=== PATIENT | male | born 1945 | race Caucasian/White ===

== ENCOUNTER 2021-01-04 18:36 | Inpatient (IN) ==
[2021-01-04] MEDS ORDERED: Dextrose Gel 15 GM/37.5 ML TUBE PO PRN ×2 (18:44)
[2021-01-04] MEDS ORDERED: D5% in Water 1,000 ML IVC PRN (18:44)
[2021-01-04] MEDS ORDERED: *HR* Dextrose 50 % in Water (Vial) 50 ML VIAL IVP PRN (18:44)
[2021-01-04] MEDS ORDERED: Acetaminophen 325 MG TABLET PO PRN (18:47)
[2021-01-04] MEDS ORDERED: Ondansetron ODT 4 MG TAB.RAPDIS SL PRN (18:51)
[2021-01-04] MEDS: levETIRAcetam 250 MG TABLET PO SCH (22:03)
[2021-01-04] MEDS: Insulin LISPRO 300 UNITS/3 ML VIAL SUBQ SCH (22:04)
[2021-01-04] MEDS: Budesonide/Formoterol 80/4.5 1 PUFF INH IH SCH (22:37)
[2021-01-05 07:16] LABS: Basophils # 0.1 K/mcL (0.0-0.2); Basophils % 0.6 %; Eosinophils # 0.8 K/mcL (0.0-0.6); Eosinophils % 6.9 %; Hematocrit 32.2 % (37.5-50.1); Hemoglobin 9.9 g/dL (12.9-16.9); Immature Granulocytes % 4.6 % (0-4); Lymphocytes # 1.9 K/mcL (0.6-4.6); Lymphocytes % 15.4 %; Mean Corpuscular HGB Conc 30.7 g/dL (31.6-35.5); Mean Corpuscular Hemoglobin 26.4 pg (28.0-33.3); Mean Corpuscular Volume 85.9 fL (83.0-100.0); Mean Platelet Volume 9.6 fL (9.4-12.4); Monocytes # 1.2 K/mcL (0.0-1.3); Monocytes % 9.7 %; Platelet Count 289 K/mcL (140-400); Red Blood Count 3.75 M/mcL (4.19-5.50); Red Cell Distribution Width 17.8 % (11.5-14.5); Segmented Neutrophils % 62.8 %; White Blood Count 12.2 K/mcL (4.3-11.1)
[2021-01-05 07:21] LABS: Neutrophils # 7.7 K/mcL (1.6-8.9)
[2021-01-05] MEDS: Insulin LISPRO 300 UNITS/3 ML VIAL SUBQ SCH ×4 (07:38→20:14)
[2021-01-05 07:45] LABS: BUN/Creatinine Ratio 21 (6-26); Blood Urea Nitrogen 22 mg/dL (8-23); Calcium 8.1 mg/dL (8.6-10.3); Carbon Dioxide 31 mEq/L (23-29); Chloride 101 mEq/L (98-107); Glucose 96 mg/dL (70-105); Osmolality,Calculated 289 (280-300); Sodium 138 mEq/L (136-145); eGFR For African Americans > 60 (> 60); eGFR For Non-African Americans > 60 (> 60)
[2021-01-05] MEDS: levETIRAcetam 250 MG TABLET PO SCH ×2 (07:50→20:17)
[2021-01-05] MEDS: Multivit/Ca/Min/Fe/FA 1 TAB TABLET PO SCH (07:50)
[2021-01-05] MEDS: Aspirin Enteric Coated 81 MG Tablet PO SCH (07:50)
[2021-01-05] MEDS: Cholecalciferol (D-3) 1,000 UNIT (25MCG) TABLET PO SCH (07:50)
[2021-01-05] MEDS: Budesonide/Formoterol 80/4.5 1 PUFF INH IH SCH ×2 (10:00→22:05)
[2021-01-05] MEDS: *HR* Rivaroxaban 10 MG TABLET PO SCH (16:29)
[2021-01-06] MEDS: Insulin LISPRO 300 UNITS/3 ML VIAL SUBQ SCH ×4 (07:41→19:40)
[2021-01-06] MEDS: Cholecalciferol (D-3) 1,000 UNIT (25MCG) TABLET PO SCH (08:13)
[2021-01-06] MEDS: Aspirin Enteric Coated 81 MG Tablet PO SCH (08:13)
[2021-01-06] MEDS: Multivit/Ca/Min/Fe/FA 1 TAB TABLET PO SCH (08:13)
[2021-01-06] MEDS: levETIRAcetam 250 MG TABLET PO SCH ×2 (08:13→19:45)
[2021-01-06] MEDS: Budesonide/Formoterol 80/4.5 1 PUFF INH IH SCH ×2 (09:53→21:12)
[2021-01-06] MEDS: *HR* Rivaroxaban 10 MG TABLET PO SCH (16:10)
[2021-01-07] MEDS: Budesonide/Formoterol 80/4.5 1 PUFF INH IH SCH ×2 (09:40→22:35)
[2021-01-07] MEDS: Ipratropium/Albuterol Neb 3 ML IH PRN (09:53)
[2021-01-07] MEDS: Aspirin Enteric Coated 81 MG Tablet PO SCH (10:20)
[2021-01-07] MEDS: Insulin LISPRO 300 UNITS/3 ML VIAL SUBQ SCH ×4 (10:21→20:02)
[2021-01-07] MEDS: levETIRAcetam 250 MG TABLET PO SCH ×2 (10:21→20:19)
[2021-01-07] MEDS: Multivit/Ca/Min/Fe/FA 1 TAB TABLET PO SCH (10:21)
[2021-01-07] MEDS: Cholecalciferol (D-3) 1,000 UNIT (25MCG) TABLET PO SCH (10:21)
[2021-01-07] MEDS: *HR* Rivaroxaban 10 MG TABLET PO SCH (17:28)
[2021-01-08] MEDS: Multivit/Ca/Min/Fe/FA 1 TAB TABLET PO SCH (08:24)
[2021-01-08] MEDS: levETIRAcetam 250 MG TABLET PO SCH ×2 (08:24→20:24)
[2021-01-08] MEDS: Aspirin Enteric Coated 81 MG Tablet PO SCH (08:25)
[2021-01-08] MEDS: Cholecalciferol (D-3) 1,000 UNIT (25MCG) TABLET PO SCH (08:25)
[2021-01-08] MEDS: Insulin LISPRO 300 UNITS/3 ML VIAL SUBQ SCH ×4 (08:25→20:24)
[2021-01-08] MEDS: Budesonide/Formoterol 80/4.5 1 PUFF INH IH SCH ×2 (09:30→22:05)
[2021-01-08] MEDS: Ipratropium/Albuterol Neb 3 ML IH PRN (09:32)
[2021-01-08] MEDS: *HR* Rivaroxaban 10 MG TABLET PO SCH (17:10)
[2021-01-09] MEDS: Insulin LISPRO 300 UNITS/3 ML VIAL SUBQ SCH ×4 (07:13→20:10)
[2021-01-09 08:28] LABS: Basophils # 0.1 K/mcL (0.0-0.2); Basophils % 0.7 %; Eosinophils # 0.7 K/mcL (0.0-0.6); Eosinophils % 5.1 %; Hemoglobin 11.2 g/dL (12.9-16.9); Immature Granulocytes % 1.5 % (0-4); Lymphocytes # 1.7 K/mcL (0.6-4.6); Lymphocytes % 12.7 %; Mean Corpuscular HGB Conc 30.3 g/dL (31.6-35.5); Mean Corpuscular Hemoglobin 26.5 pg (28.0-33.3); Mean Corpuscular Volume 87.5 fL (83.0-100.0); Mean Platelet Volume 10.4 fL (9.4-12.4); Monocytes # 1.3 K/mcL (0.0-1.3); Monocytes % 9.8 %; Neutrophils # 9.1 K/mcL (1.6-8.9); Platelet Count 281 K/mcL (140-400); Red Blood Count 4.23 M/mcL (4.19-5.50); Red Cell Distribution Width 17.9 % (11.5-14.5); Segmented Neutrophils % 70.2 %
[2021-01-09 08:36] LABS: BUN/Creatinine Ratio 17 (6-26); Blood Urea Nitrogen 19 mg/dL (8-23); Carbon Dioxide 31 mEq/L (23-29); Chloride 100 mEq/L (98-107); Glucose 108 mg/dL (70-105); Osmolality,Calculated 287 (280-300); Potassium 4.4 mEq/L (3.5-5.1); Sodium 137 mEq/L (136-145); eGFR For African Americans > 60 (> 60); eGFR For Non-African Americans > 60 (> 60)
[2021-01-09] MEDS: Budesonide/Formoterol 80/4.5 1 PUFF INH IH SCH ×2 (09:22→20:42)
[2021-01-09] MEDS: Cholecalciferol (D-3) 1,000 UNIT (25MCG) TABLET PO SCH (10:09)
[2021-01-09] MEDS: Multivit/Ca/Min/Fe/FA 1 TAB TABLET PO SCH (10:09)
[2021-01-09] MEDS: Aspirin Enteric Coated 81 MG Tablet PO SCH (10:09)
[2021-01-09] MEDS: levETIRAcetam 250 MG TABLET PO SCH ×2 (10:09→20:18)
[2021-01-09] MEDS: *HR* Rivaroxaban 10 MG TABLET PO SCH (17:54)
[2021-01-10] MEDS: Insulin LISPRO 300 UNITS/3 ML VIAL SUBQ SCH ×4 (07:42→21:01)
[2021-01-10] MEDS: Cholecalciferol (D-3) 1,000 UNIT (25MCG) TABLET PO SCH (09:22)
[2021-01-10] MEDS: levETIRAcetam 250 MG TABLET PO SCH ×2 (09:22→20:58)
[2021-01-10] MEDS: Multivit/Ca/Min/Fe/FA 1 TAB TABLET PO SCH (09:22)
[2021-01-10] MEDS: Aspirin Enteric Coated 81 MG Tablet PO SCH (09:23)
[2021-01-10] MEDS: Budesonide/Formoterol 80/4.5 1 PUFF INH IH SCH ×2 (11:47→21:13)
[2021-01-10] MEDS: *HR* Rivaroxaban 10 MG TABLET PO SCH (17:27)
[2021-01-11] MEDS: Insulin LISPRO 300 UNITS/3 ML VIAL SUBQ SCH ×4 (07:52→21:25)
[2021-01-11] MEDS: Cholecalciferol (D-3) 1,000 UNIT (25MCG) TABLET PO SCH (09:38)
[2021-01-11] MEDS: levETIRAcetam 250 MG TABLET PO SCH ×2 (09:38→21:24)
[2021-01-11] MEDS: Multivit/Ca/Min/Fe/FA 1 TAB TABLET PO SCH (09:38)
[2021-01-11] MEDS: Aspirin Enteric Coated 81 MG Tablet PO SCH (09:38)
[2021-01-11] MEDS: Budesonide/Formoterol 80/4.5 1 PUFF INH IH SCH ×2 (09:54→21:45)
[2021-01-11] MEDS: *HR* Rivaroxaban 10 MG TABLET PO SCH (17:32)
[2021-01-12] MEDS: Insulin LISPRO 300 UNITS/3 ML VIAL SUBQ SCH ×4 (08:25→22:47)
[2021-01-12] MEDS: Multivit/Ca/Min/Fe/FA 1 TAB TABLET PO SCH (08:31)
[2021-01-12] MEDS: Aspirin Enteric Coated 81 MG Tablet PO SCH (08:31)
[2021-01-12] MEDS: levETIRAcetam 250 MG TABLET PO SCH ×2 (08:34→22:44)
[2021-01-12] MEDS: Cholecalciferol (D-3) 1,000 UNIT (25MCG) TABLET PO SCH (08:35)
[2021-01-12] MEDS: Budesonide/Formoterol 80/4.5 1 PUFF INH IH SCH ×2 (08:56→21:21)
[2021-01-12] MEDS: *HR* Rivaroxaban 10 MG TABLET PO SCH (16:44)
[2021-01-13] MEDS: Insulin LISPRO 300 UNITS/3 ML VIAL SUBQ SCH ×4 (07:40→22:28)
[2021-01-13] MEDS: Aspirin Enteric Coated 81 MG Tablet PO SCH (07:55)
[2021-01-13] MEDS: levETIRAcetam 250 MG TABLET PO SCH ×2 (07:55→22:27)
[2021-01-13] MEDS: Cholecalciferol (D-3) 1,000 UNIT (25MCG) TABLET PO SCH (07:56)
[2021-01-13] MEDS: Multivit/Ca/Min/Fe/FA 1 TAB TABLET PO SCH (07:56)
[2021-01-13 08:20] LABS: Basophils # 0.1 K/mcL (0.0-0.2); Basophils % 1.1 %; Eosinophils # 0.6 K/mcL (0.0-0.6); Eosinophils % 6.7 %; Hematocrit 33.3 % (37.5-50.1); Hemoglobin 10.2 g/dL (12.9-16.9); Immature Granulocytes % 0.6 % (0-4); Lymphocytes # 1.3 K/mcL (0.6-4.6); Lymphocytes % 14.9 %; Mean Corpuscular HGB Conc 30.6 g/dL (31.6-35.5); Mean Corpuscular Hemoglobin 26.7 pg (28.0-33.3); Mean Corpuscular Volume 87.2 fL (83.0-100.0); Mean Platelet Volume 10.4 fL (9.4-12.4); Monocytes # 1.1 K/mcL (0.0-1.3); Monocytes % 11.7 %; Neutrophils # 5.8 K/mcL (1.6-8.9); Platelet Count 297 K/mcL (140-400); Red Blood Count 3.82 M/mcL (4.19-5.50); Red Cell Distribution Width 17.6 % (11.5-14.5)
[2021-01-13 08:44] LABS: BUN/Creatinine Ratio 16 (6-26); Blood Urea Nitrogen 15 mg/dL (8-23); Calcium 8.7 mg/dL (8.6-10.3); Carbon Dioxide 28 mEq/L (23-29); Chloride 102 mEq/L (98-107); Glucose 89 mg/dL (70-105); Osmolality,Calculated 286 (280-300); Potassium 4.3 mEq/L (3.5-5.1); Sodium 138 mEq/L (136-145); eGFR For African Americans > 60 (> 60); eGFR For Non-African Americans > 60 (> 60)
[2021-01-13] MEDS: Budesonide/Formoterol 80/4.5 1 PUFF INH IH SCH ×2 (08:53→21:12)
[2021-01-13] MEDS: *HR* Rivaroxaban 10 MG TABLET PO SCH (16:51)
[2021-01-14] MEDS: Multivit/Ca/Min/Fe/FA 1 TAB TABLET PO SCH (08:14)
[2021-01-14] MEDS: levETIRAcetam 250 MG TABLET PO SCH ×2 (08:14→21:03)
[2021-01-14] MEDS: Insulin LISPRO 300 UNITS/3 ML VIAL SUBQ SCH ×4 (08:15→21:04)
[2021-01-14] MEDS: Aspirin Enteric Coated 81 MG Tablet PO SCH (08:15)
[2021-01-14] MEDS: Cholecalciferol (D-3) 1,000 UNIT (25MCG) TABLET PO SCH (08:15)
[2021-01-14] MEDS: Budesonide/Formoterol 80/4.5 1 PUFF INH IH SCH ×2 (10:35→20:46)
[2021-01-14] MEDS: *HR* Rivaroxaban 10 MG TABLET PO SCH (16:36)
[2021-01-14] MEDS ORDERED: Cefdinir 300 MG CAPSULE PO ONE (16:56)
[2021-01-15] MEDS: Aspirin Enteric Coated 81 MG Tablet PO SCH (08:21)
[2021-01-15] MEDS: Multivit/Ca/Min/Fe/FA 1 TAB TABLET PO SCH (08:21)
[2021-01-15] MEDS: Cholecalciferol (D-3) 1,000 UNIT (25MCG) TABLET PO SCH (08:21)
[2021-01-15] MEDS: levETIRAcetam 250 MG TABLET PO SCH ×2 (08:21→20:33)
[2021-01-15] MEDS: Insulin LISPRO 300 UNITS/3 ML VIAL SUBQ SCH ×4 (08:22→20:36)
[2021-01-15] MEDS: Budesonide/Formoterol 80/4.5 1 PUFF INH IH SCH ×2 (08:26→20:58)
[2021-01-15] MEDS: *HR* Rivaroxaban 10 MG TABLET PO SCH (16:03)
[2021-01-16] MEDS: Insulin LISPRO 300 UNITS/3 ML VIAL SUBQ SCH ×4 (07:53→21:49)
[2021-01-16] MEDS: Multivit/Ca/Min/Fe/FA 1 TAB TABLET PO SCH (08:35)
[2021-01-16] MEDS: Aspirin Enteric Coated 81 MG Tablet PO SCH (08:35)
[2021-01-16] MEDS: Cholecalciferol (D-3) 1,000 UNIT (25MCG) TABLET PO SCH (08:35)
[2021-01-16] MEDS: levETIRAcetam 250 MG TABLET PO SCH ×2 (08:35→21:52)
[2021-01-16] MEDS: Budesonide/Formoterol 80/4.5 1 PUFF INH IH SCH ×2 (09:48→21:40)
[2021-01-16] MEDS: *HR* Rivaroxaban 10 MG TABLET PO SCH (17:11)
[2021-01-16] MEDS ORDERED: Ondansetron 4 MG/2 ML VIAL IVP PRN (23:27)
[2021-01-17 05:44] LABS: Basophils # 0.1 K/mcL (0.0-0.2); Basophils % 1.4 %; Eosinophils # 0.6 K/mcL (0.0-0.6); Eosinophils % 9.1 %; Hematocrit 31.1 % (37.5-50.1); Hemoglobin 9.5 g/dL (12.9-16.9); Immature Granulocytes % 0.4 % (0-4); Lymphocytes # 1.3 K/mcL (0.6-4.6); Mean Corpuscular HGB Conc 30.5 g/dL (31.6-35.5); Mean Corpuscular Hemoglobin 26.8 pg (28.0-33.3); Mean Corpuscular Volume 87.9 fL (83.0-100.0); Mean Platelet Volume 10.5 fL (9.4-12.4); Monocytes # 0.9 K/mcL (0.0-1.3); Monocytes % 12.7 %; Platelet Count 317 K/mcL (140-400); Red Blood Count 3.54 M/mcL (4.19-5.50); Red Cell Distribution Width 17.6 % (11.5-14.5); Segmented Neutrophils % 57.4 %
[2021-01-17 06:00] LABS: BUN/Creatinine Ratio 16 (6-26); Blood Urea Nitrogen 15 mg/dL (8-23); Calcium 8.6 mg/dL (8.6-10.3); Carbon Dioxide 29 mEq/L (23-29); Chloride 104 mEq/L (98-107); Glucose 94 mg/dL (70-105); Osmolality,Calculated 289 (280-300); Potassium 4.3 mEq/L (3.5-5.1); Sodium 139 mEq/L (136-145); eGFR For African Americans > 60 (> 60); eGFR For Non-African Americans > 60 (> 60)
[2021-01-17] MEDS: Budesonide/Formoterol 80/4.5 1 PUFF INH IH SCH ×2 (08:27→21:45)
[2021-01-17] MEDS: Insulin LISPRO 300 UNITS/3 ML VIAL SUBQ SCH ×4 (09:12→20:20)
[2021-01-17] MEDS: Cholecalciferol (D-3) 1,000 UNIT (25MCG) TABLET PO SCH (10:20)
[2021-01-17] MEDS: levETIRAcetam 250 MG TABLET PO SCH ×2 (10:21→20:20)
[2021-01-17] MEDS: Aspirin Enteric Coated 81 MG Tablet PO SCH (10:21)
[2021-01-17] MEDS: Multivit/Ca/Min/Fe/FA 1 TAB TABLET PO SCH (10:21)
[2021-01-17 11:36] LABS: Estimated Average Glucose 137 mg/dl; Hemoglobin A1C 6.4 %
[2021-01-17] MEDS: *HR* Rivaroxaban 10 MG TABLET PO SCH (16:32)
[2021-01-18] MEDS: Insulin LISPRO 300 UNITS/3 ML VIAL SUBQ SCH ×4 (07:24→21:00)
[2021-01-18] MEDS: Multivit/Ca/Min/Fe/FA 1 TAB TABLET PO SCH (08:05)
[2021-01-18] MEDS: levETIRAcetam 250 MG TABLET PO SCH ×2 (08:05→21:00)
[2021-01-18] MEDS: Aspirin Enteric Coated 81 MG Tablet PO SCH (08:05)
[2021-01-18] MEDS: Cholecalciferol (D-3) 1,000 UNIT (25MCG) TABLET PO SCH (08:05)
[2021-01-18] MEDS: Budesonide/Formoterol 80/4.5 1 PUFF INH IH SCH ×2 (09:24→21:26)
[2021-01-18] MEDS: *HR* Rivaroxaban 10 MG TABLET PO SCH (17:01)
[2021-01-19 07:19] VITALS: BP 132/76; PULSE 76; TEMP 98.8
[2021-01-19] MEDS: Insulin LISPRO 300 UNITS/3 ML VIAL SUBQ SCH ×2 (07:37→11:47)
[2021-01-19] MEDS: Budesonide/Formoterol 80/4.5 1 PUFF INH IH SCH (08:29)
[2021-01-19 08:32] VITALS: RESP 18; O2SAT 91
[2021-01-19] MEDS: levETIRAcetam 250 MG TABLET PO SCH (08:40)
[2021-01-19] MEDS: Aspirin Enteric Coated 81 MG Tablet PO SCH (08:40)
[2021-01-19] MEDS: Cholecalciferol (D-3) 1,000 UNIT (25MCG) TABLET PO SCH (08:40)
[2021-01-19] MEDS: Multivit/Ca/Min/Fe/FA 1 TAB TABLET PO SCH (08:40)
== END 2021-01-19 13:15 | disposition home health service (06) | DRG 945 ==
LOC: INPPIK 20:53
PROVIDERS: ADMIT Family Medicine; ATTEND Family Medicine